=== PATIENT | female | born 1995 | race African-American/Black ===

== ENCOUNTER 2016-07-16 04:43 | Emergency (ER) | payer SELFPAY ==
[~2016-07-16] VITALS: Ht 160 cm; Wt 61.2 kg
[2016-07-16] MEDS ORDERED: ONDANSETRON ODT 4 MG TAB.RAPDIS. PO ONE (05:15)
[2016-07-16 05:18] LABS: BASO % 0 % (0-3); EOS % 1 % (0-3); HEMATOCRIT 43.3 % (36.0-47.0); HEMOGLOBIN 14.5 g/dL (12.0-15.5); LYMPH # 1.2 x10^3/uL (1.0-4.8); LYMPH % 8 % (24-48); MEAN CORPUSCULAR HEMOGLOBIN 31 pg (25-35); MEAN CORPUSCULAR HGB CONC 34 g/dL (31-37); MEAN CORPUSCULAR VOLUME 91 fL (79-100); MONO % 5 % (0-9); NEUT % 87 % (31-73); PLATELET COUNT 289 x10^3/uL (140-400); RED BLOOD COUNT 4.77 x10^6/uL (3.50-5.40); WHITE BLOOD COUNT 15.6 x10^3/uL (4.0-11.0)
[2016-07-16] MEDS ORDERED: ONDANSETRON PF 4 MG/2 ML VIAL. IV ONE (05:30)
[2016-07-16] MEDS ORDERED: KETOROLAC TROMETHAMINE 30 MG/ML INJ. IV ONE (05:30)
[2016-07-16] MEDS ORDERED: IV NORMAL SALINE 1000ML BAG 1,000 ML IV ONE (05:30)
[2016-07-16 05:33] LABS: CALCIUM 8.9 mg/dL (8.5-10.1); CREATININE 0.6 mg/dL (0.6-1.0); GFR 154.2; POTASSIUM 3.6 mmol/L (3.5-5.1)
[2016-07-16] MEDS ORDERED: ONDA4TAB7 PO (06:01)
--- NOTE | 2016-07-16 06:01 | PHYS DOC ---
Past Medical History Past Medical History: Anxiety, Asthma, Depression Past Surgical History: No Surgical History, Tonsillectomy Additional Information: 0.5 PPD Alcohol Use: Occasionally Drug Use: Marijuana Adult General Chief Complaint Chief Complaint: NAUSEA/VOMITING/DIARRHA HPI HPI 20-year-old female states she's had persistent nausea, vomiting, diarrhea for the past several hours. Patient states she believes she ate some ice cream in the afternoon that was the impetus for her symptoms. She states she's had numerous episodes of vomiting and loose stools. She states she's having generalized abdominal discomfort but no focality to her symptoms. Upon my initial assessment, she is in no acute distress and is afebrile and nontoxic in appearance. She denies any significant history of abdominal surgery. Review of Systems Review of Systems Constitutional: Denies fever or chills [] Eyes: Denies change in visual acuity, redness, or eye pain [] HENT: Denies nasal congestion or sore throat [] Respiratory: Denies cough or shortness of breath [] Cardiovascular: No additional information not addressed in HPI [] GI: Denies abdominal pain, nausea, vomiting, bloody stools or diarrhea [] : Denies dysuria or hematuria [] Musculoskeletal: Denies back pain or joint pain [] Integument: Denies rash or skin lesions [] Neurologic: Denies headache, focal weakness or sensory changes [] Endocrine: Denies polyuria or polydipsia [] Current Medications Current Medications Current Medications Medications (Trade) Dose Ordered Sig/Geeta Start Time Stop Time Status Last Admin Dose Admin Ketorolac Tromethamine (Toradol) 30 mg 1X ONCE 07/16/16 05:30 07/16/16 05:31 DC 07/16/16 05:23 30 MG Ondansetron HCl (Zofran Odt) 4 mg 1X ONCE 07/16/16 05:15 07/16/16 05:15 DC Ondansetron HCl (Zofran) 4 mg 1X ONCE 07/16/16 05:30 07/16/16 05:31 DC 07/16/16 05:19 4 MG Sodium Chloride 1,000 ml @ 1,000 mls/hr 1X ONCE 07/16/16 05:30 07/16/16 06:29 07/16/16 05:21 1,000 MLS/HR Allergies Allergies Allergies Coded Allergies Type Severity Reaction Last Updated Verified cetirizine Allergy Intermediate 11/07/14 Yes chlorpheniramine Allergy Intermediate 11/07/14 Yes diphenhydramine Allergy Intermediate 11/07/14 Yes fexofenadine Allergy Intermediate 11/07/14 Yes loratadine Allergy Intermediate 11/07/14 Yes Physical Exam Physical Exam Constitutional: Well developed, well nourished, no acute distress, non-toxic appearance. [] HENT: Normocephalic, atraumatic, bilateral external ears normal, oropharynx moist, no oral exudates, nose normal. [] Eyes: PERRLA, EOMI, conjunctiva normal, no discharge. [] Neck: Normal range of motion, no tenderness, supple, no stridor. [] Cardiovascular:Heart rate regular rhythm, no murmur [] Lungs & Thorax: Bilateral breath sounds clear to auscultation [] Abdomen: Bowel sounds normal, soft, no significant tenderness, no masses, no pulsatile masses. [] Skin: Warm, dry, no erythema, no rash. [] Back: No tenderness, no CVA tenderness. [] Extremities: No tenderness, no cyanosis, no clubbing, ROM intact, no edema. [] Neurologic: Alert and oriented X 3, normal motor function, normal sensory function, no focal deficits noted. [] Psychologic: Affect normal, judgement normal, mood normal. [] Current Patient Data Vital Signs Vital Signs Date Time Temp Pulse Resp B/P (MAP) Pulse Ox O2 Delivery O2 Flow Rate FiO2 07/16/16 04:55 97.2 100 22 117/82 (94) 98 Room Air 97.2 Lab Values Laboratory Tests Test 07/16/16 05:05 White Blood Count 15.6 x10^3/uL (4.0-11.0) H Red Blood Count 4.77 x10^6/uL (3.50-5.40) Hemoglobin 14.5 g/dL (12.0-15.5) Hematocrit 43.3 % (36.0-47.0) Mean Corpuscular Volume 91 fL (79-100) Mean Corpuscular Hemoglobin 31 pg (25-35) Mean Corpuscular Hemoglobin Concent 34 g/dL (31-37) Red Cell Distribution Width 14.0 % (11.5-14.5) Platelet Count 289 x10^3/uL (140-400) Neutrophils (%) (Auto) 87 % (31-73) H Lymphocytes (%) (Auto) 8 % (24-48) L Monocytes (%) (Auto) 5 % (0-9) Eosinophils (%) (Auto) 1 % (0-3) Basophils (%) (Auto) 0 % (0-3) Neutrophils # (Auto) 13.6 x10^3uL (1.8-7.7) H Lymphocytes # (Auto) 1.2 x10^3/uL (1.0-4.8) Monocytes # (Auto) 0.7 x10^3/uL (0.0-1.1) Eosinophils # (Auto) 0.1 x10^3/uL (0.0-0.7) Basophils # (Auto) 0.0 x10^3/uL (0.0-0.2) Platelet Estimate Pending Sodium Level 138 mmol/L (136-145) Potassium Level 3.6 mmol/L (3.5-5.1) Chloride Level 103 mmol/L (98-107) Carbon Dioxide Level 26 mmol/L (21-32) Anion Gap 9 (6-14) Blood Urea Nitrogen 18 mg/dL (7-20) Creatinine 0.6 mg/dL (0.6-1.0) Estimated GFR (Cockcroft-Gault) 154.2 Glucose Level 114 mg/dL (70-99) H Calcium Level 8.9 mg/dL (8.5-10.1) Laboratory Tests 07/16/16 05:05 Laboratory Tests 07/16/16 05:05 EKG EKG [] Radiology/Procedures Radiology/Procedures [] Course & Med Decision Making Course & Med Decision Making Pertinent Labs and Imaging studies reviewed. (See chart for details) This 20-year-old female with GI discomfort and nausea and vomiting will be given a fluid bolus, Zofran, Toradol, and will be reassessed after fluid bolus and fluid challenged. If successful, she'll be discharged with Zofran prescription for likely gastroenteritis. She is completely afebrile nontoxic in appearance. Return precautions will be provided. On my reassessment, the patient is much improved with fluids, Toradol, Zofran. A serum is pending at this time. The case was signed out to Dr. Santos for further evaluation with the intended plan to be discharge with Zofran and rehydration. Meng Disclaimer Dragon Disclaimer This electronic medical record was generated, in whole or in part, using a voice recognition dictation system. Departure Departure Impression: Primary Impression: Nausea & vomiting Additional Impression: Diarrhea Disposition: 01 HOME, SELF-CARE Admitting Physician: Other Condition: IMPROVED Referrals: JORDAN LAWRENCE MD (PCP) Patient Instructions: Nausea and Vomiting, [id number], Viral Gastroenteritis , [id number] Additional Instructions: Please continue to drink plenty of fluids and take zofran as needed for any nausea. Get plenty of rest. Return to the ER if you develop any worsening of your symptoms or if you are unable to tolerate fluids. Scripts Ondansetron Hcl (ZOFRAN) 4 Mg Tablet 4 MG PO BID Y for NAUSEA/VOMITING, #10 TAB Prov: PERFECTO CORTES DO 07/16/16 Problem Qualifiers PERFECTO CORTES DO July 16, 2016 06:01
[2016-07-16 06:40] LABS: NEG OBC SER NEG; POS OBC SER POS
[2016-07-16 06:46] LABS: PLT ESTIMATE ADEQUATE (ADEQUATE)
[2016-07-16 07:06] VITALS: BP 109/58
[2016-07-16 07:31] LABS: BILIRUBIN,URINE NEGATIVE (NEG); GLUCOSE,URINE NEGATIVE (NEG); NITRITE,URINE NEGATIVE (NEG); PH,URINE 5.5; PROTEIN,URINE NEGATIVE (NEG-TRACE); UROBILINOGEN,URINE 0.2 mg/dL (0.2 mg/dL)
[2016-07-16 07:36] LABS: BACTERIA,URINE MODERATE /HPF (0-FEW); SQUAMOUS EPITHELIAL CELL,UR FEW /LPF
== END 2016-07-16 08:03 | disposition home or self-care (01) ==
LOC: ER 04:43
DX: R11.2 Nausea with vomiting, unspecified (principal); R19.7 Diarrhea, unspecified; F41.9 Anxiety disorder, unspecified; J45.909 Unspecified asthma, uncomplicated; F32.9 Major depressive disorder, single episode, unspecified; F12.10 Cannabis abuse, uncomplicated; F17.200 Nicotine dependence, unspecified, uncomplicated; Z88.8 Allergy status to other drugs, medicaments and biological substances
CPT/HCPCS: 36415; 80048; 81001; 84703; 85007; 85027; 87086; 96361; 96374; 96375; 99285; J1885; J2405; J7030; 81025

== ENCOUNTER 2016-11-21 17:09 | Emergency (ER) | payer SELFPAY ==
[~2016-11-21] VITALS: Ht 160 cm; Wt 63.5 kg
[~2016-11-21 17:09] MED LIST: ONDA4TAB7 PO
[2016-11-21 17:36] VITALS: BP 116/58
[2016-11-21] MEDS ORDERED: IV NORMAL SALINE 1000ML BAG 1,000 ML IV SCH (17:45)
[2016-11-21 17:53] LABS: BASO # 0.1 x10^3/uL (0.0-0.2); BASO % 1 % (0-3); EOS % 2 % (0-3); HEMATOCRIT 39.7 % (36.0-47.0); HEMOGLOBIN 13.2 g/dL (12.0-15.5); LYMPH # 2.1 x10^3/uL (1.0-4.8); LYMPH % 25 % (24-48); MEAN CORPUSCULAR HEMOGLOBIN 31 pg (25-35); MEAN CORPUSCULAR HGB CONC 33 g/dL (31-37); MEAN CORPUSCULAR VOLUME 92 fL (79-100); MONO % 8 % (0-9); NEUT % 64 % (31-73); PLATELET COUNT 212 x10^3/uL (140-400); RED BLOOD COUNT 4.34 x10^6/uL (3.50-5.40); RED CELL DISTRIBUTION WIDTH 13.6 % (11.5-14.5); WHITE BLOOD COUNT 8.1 x10^3/uL (4.0-11.0)
[2016-11-21 18:00] LABS: CALCIUM 8.6 mg/dL (8.5-10.1); CREATININE 0.8 mg/dL (0.6-1.0); GFR 109.6; POTASSIUM 3.9 mmol/L (3.5-5.1)
[2016-11-21 18:06] LABS: ALBUMIN 3.8 g/dL (3.4-5.0); ALBUMIN/GLOBULIN RATIO 1.1 (1.0-1.7); TOTAL BILIRUBIN 0.4 mg/dL (0.2-1.0); TOTAL PROTEIN 7.2 g/dL (6.4-8.2)
--- NOTE | 2016-11-21 18:59 | PHYS DOC ---
Past Medical History Past Medical History: GERD Past Surgical History: Tonsillectomy Alcohol Use: Occasionally Drug Use: Marijuana Adult General Chief Complaint Chief Complaint: vomiting blood HPI HPI Patient is a 21 year old female who presents ambulatory to the ED with the complaint of vomiting and diarrhea with 4 episodes of vomiting blood. Patient states she has vomited about 5 times over the last 3 days. The first time she vomited there was no blood in it, the second time, a "light" amount of blood and the third fourth and fifth times she has vomited a moderate amount of blood. She's had no blood in her stools and no black stools. Her stools are loose and green in color. She has never had vomiting blood in the past. Patient states she has had "acid reflux" and has taken a medication for it, she believes Pepcid, but takes it only when necessary and has not taken it for quite a while. She has never seen a GI doctor and has never had endoscopy. Patient has had "slight" upper abdominal pain, does not have it right now. Her stomach seems to be more upset after she eats. She does not believe she is . Last period was 10/09-, she believe she missed her period in November but she does not believe she is . She does not take any kind of control pills but does use condoms. PCP Dr. Lawrence Review of Systems Review of Systems Constitutional: Denies fever or chills [] HENT: Denies nasal congestion or sore throat [] Respiratory: Denies cough or shortness of breath [] Cardiovascular: No additional information not addressed in HPI [] GI: As in history of present illness : Denies Musculoskeletal: Denies back pain or joint pain [] Integument: Denies rash or skin lesions [] Neurologic: Denies headache, focal weakness or sensory changes [] Current Medications Current Medications Current Medications Medications (Trade) Dose Ordered Sig/Geeta Start Time Stop Time Status Last Admin Dose Admin Sodium Chloride 1,000 ml @ 1,000 mls/hr Q1H 11/21/16 17:45 11/21/16 18:44 DC 11/21/16 18:25 1,000 MLS/HR Allergies Allergies Allergies Coded Allergies Type Severity Reaction Last Updated Verified cetirizine Allergy Intermediate 11/07/14 Yes chlorpheniramine Allergy Intermediate 11/07/14 Yes diphenhydramine Allergy Intermediate 11/07/14 Yes fexofenadine Allergy Intermediate 11/07/14 Yes loratadine Allergy Intermediate 11/07/14 Yes Physical Exam Physical Exam Constitutional: Well developed, well nourished, no acute distress, non-toxic appearance. Alert, mentating normally, warm and dry, vital signs stable. HENT: Normocephalic, atraumatic, bilateral external ears normal, nose normal. [ ] Eyes: conjunctiva normal, no discharge. [] Neck: Normal range of motion, no stridor. [] Cardiovascular:Heart rate regular rhythm, no murmur [] Lungs & Thorax: Bilateral breath sounds clear to auscultation [] Abdomen: Bowel sounds normal, soft, no tenderness, no masses, no pulsatile masses. [] Skin: Warm, dry, no erythema, no rash. [] Extremities: No tenderness, no cyanosis, no clubbing, ROM intact, no edema. [] Neurologic: Alert and oriented X 3, normal motor function, normal sensory function, no focal deficits noted. [] Current Patient Data Vital Signs Vital Signs Date Time Temp Pulse Resp B/P (MAP) Pulse Ox O2 Delivery O2 Flow Rate FiO2 11/21/16 17:36 98.3 85 14 98 Room Air 98.3 Lab Values Laboratory Tests Test 11/21/16 17:22 11/21/16 17:40 POC Urine HCG, Qualitative Hcg negative (Negative) White Blood Count 8.1 x10^3/uL (4.0-11.0) Red Blood Count 4.34 x10^6/uL (3.50-5.40) Hemoglobin 13.2 g/dL (12.0-15.5) Hematocrit 39.7 % (36.0-47.0) Mean Corpuscular Volume 92 fL (79-100) Mean Corpuscular Hemoglobin 31 pg (25-35) Mean Corpuscular Hemoglobin Concent 33 g/dL (31-37) Red Cell Distribution Width 13.6 % (11.5-14.5) Platelet Count 212 x10^3/uL (140-400) Neutrophils (%) (Auto) 64 % (31-73) Lymphocytes (%) (Auto) 25 % (24-48) Monocytes (%) (Auto) 8 % (0-9) Eosinophils (%) (Auto) 2 % (0-3) Basophils (%) (Auto) 1 % (0-3) Neutrophils # (Auto) 5.2 x10^3uL (1.8-7.7) Lymphocytes # (Auto) 2.1 x10^3/uL (1.0-4.8) Monocytes # (Auto) 0.7 x10^3/uL (0.0-1.1) Eosinophils # (Auto) 0.1 x10^3/uL (0.0-0.7) Basophils # (Auto) 0.1 x10^3/uL (0.0-0.2) Sodium Level 139 mmol/L (136-145) Potassium Level 3.9 mmol/L (3.5-5.1) Chloride Level 105 mmol/L (98-107) Carbon Dioxide Level 27 mmol/L (21-32) Anion Gap 7 (6-14) Blood Urea Nitrogen 18 mg/dL (7-20) Creatinine 0.8 mg/dL (0.6-1.0) Estimated GFR (Cockcroft-Gault) 109.6 BUN/Creatinine Ratio 23 (6-20) H Glucose Level 97 mg/dL (70-99) Calcium Level 8.6 mg/dL (8.5-10.1) Total Bilirubin 0.4 mg/dL (0.2-1.0) Aspartate Amino Transferase (AST) 15 U/L (15-37) Alanine Aminotransferase (ALT) 22 U/L (14-59) Alkaline Phosphatase 87 U/L (46-116) Total Protein 7.2 g/dL (6.4-8.2) Albumin 3.8 g/dL (3.4-5.0) Albumin/Globulin Ratio 1.1 (1.0-1.7) Lipase 225 U/L (73-393) Laboratory Tests 11/21/16 17:40 Laboratory Tests 11/21/16 17:40 EKG EKG [] Radiology/Procedures Radiology/Procedures [] Course & Med Decision Making Course & Med Decision Making Pertinent Labs and Imaging studies reviewed. (See chart for details) 21-year-old female who states she has vomited 5 times in 3 days, four of the episodes had some blood in the vomit. I discussed with her that we will do some labs and give her some IV fluids. She is agreeable to that. Patient was given IV fluids and IV Zofran. She did not have any vomiting in the ED. Labs are all normal. I reassured the patient. See instructions for plan. [] Dragon Disclaimer Dragon Disclaimer This electronic medical record was generated, in whole or in part, using a voice recognition dictation system. Departure Departure Impression: Primary Impression: Hematemesis Additional Impression: Vomiting Disposition: HOME, SELF-CARE Condition: STABLE Referrals: JORDAN LAWRENCE MD (PCP) Patient Instructions: Hematemesis Additional Instructions: Purchase [id number] Nexium or Protonix. That will be a 14 day supply. Take once a day as directed. Make an appointment for follow-up with your primary care doctor. She may want to refer you to a GI specialist, especially if you have any more vomiting blood. A, labs were normal and you're vital signs were stable. If you are weak or lightheaded or faint, or if you vomit more blood, you may need to have recheck depending on your symptoms. Call your doctor or return to emergency. Problem Qualifiers ROSEANN PATTERSON MD Nov 21, 2016 18:59
== END 2016-11-21 19:16 | disposition home or self-care (01) ==
LOC: ER 17:09
DX: K92.0 Hematemesis (principal); R19.7 Diarrhea, unspecified; K21.9 Gastro-esophageal reflux disease without esophagitis; Z88.8 Allergy status to other drugs, medicaments and biological substances
CPT/HCPCS: 36415; 80053; 81025; 83690; 85025; 96360; 99284; J7030